=== PATIENT | female | born 2000 | race Caucasian/White ===

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

== ENCOUNTER 2025-10-11 09:02 | Emergency (ER) | payer BC ==
[~2025-10-11] VITALS: Ht 167.6 cm; Wt 108.9 kg
[2025-10-11] MEDS ORDERED: NAPROSYN500 MG PO (10:36)
== END 2025-10-11 10:53 | disposition home or self-care (01) ==
LOC: ED 09:02
DX: S63.502A Unspecified sprain of left wrist, initial encounter (principal); J45.909 Unspecified asthma, uncomplicated; W00.0XXA Fall on same level due to ice and snow, initial encounter; Y93.89 Activity, other specified; Y92.89 Other specified places as the place of occurrence of the external cause; Y99.8 Other external cause status